=== PATIENT | female | born 1965 | race Two or more races ===

== ENCOUNTER 2019-03-26 15:26 | Outpatient (CLI) | payer OTHER | END 2019-03-26 15:30 | disposition home or self-care (01) | LOC: MRI 15:26 | DX: M54.5 Low back pain (principal) | CPT/HCPCS: 72148 ==

== ENCOUNTER 2019-12-24 07:17 | Emergency (ER) | payer OTHER ==
[~2019-12-24] VITALS: Ht 149.9 cm; Wt 49.9 kg
== END 2019-12-24 12:16 | disposition home or self-care (01) ==
LOC: ER 07:17
DX: B34.9 Viral infection, unspecified (principal); Z03.818 Encounter for observation for suspected exposure to other biological agents ruled out

== ENCOUNTER 2020-06-28 19:28 | Emergency (ER) | payer OTHER ==
[~2020-06-28] VITALS: Ht 149.9 cm; Wt 49.9 kg
[2020-06-28] MEDS ORDERED: CRESTOR10 MG PO (19:52)
[2020-06-28] MEDS ORDERED: COZAAR50 MG PO (19:52)
[2020-06-28] MEDS ORDERED: POLY119PG PO (23:10)
== END 2020-06-28 23:46 | disposition home or self-care (01) ==
LOC: ER 19:28
DX: K59.09 Other constipation (principal); R10.32 Left lower quadrant pain